=== PATIENT | female | born 1960 | race American Indian/Alaskan Native ===

== ENCOUNTER 2020-07-09 15:27 | Emergency (ER) | payer SELFPAY | END 2020-07-09 17:09 | disposition left against medical advice (07) | LOC: ED 15:27 | DX: Z53.21 Procedure and treatment not carried out due to patient leaving prior to being seen by health care provider (principal) ==

== ENCOUNTER 2020-07-10 10:43 | Emergency (ER) | payer SELFPAY ==
[2020-07-10 11:01] VITALS: BP 125/61
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
--- NOTE | 2020-07-10 14:53 | Cat Scan Report ---
CT HEAD WITHOUT CONTRAST INDICATION / CLINICAL INFORMATION: Right-sided headache, trauma. TECHNIQUE: All CT scans at this location are performed using CT dose reduction for ALARA by means of automated e xposure control. COMPARISON: None available. FINDINGS: HEMORRHAGE: None. EXTRA-AXIAL SPACES: Normal in size and morphology for the patient's age. VENTRICULAR SYSTEM: Normal in size and morphology for the patient's age. CEREBRAL PARENCHYMA: No significant abnormality. No acute territorial infarct. MIDLINE SHIFT OR HERNIATION: None. CEREBELLUM / BRAINSTEM: No significant abnormality. ORBITS: Normal as visualized. SOFT TISSUES of HEAD: No significant abnormality. CALVARIUM: No significant abnormality. PARANASAL SINUSES / MASTOID AIR CELLS: Small air-fluid level right maxillary sinus characteristic for acute sinusitis ADDITIONAL FINDINGS: None. IMPRESSION: 1. No acute intracranial abnormality. 2 acute right maxillary sinusitis Signer Name: Harry Owusu MD Signed: 07/10/2020 2:48 PM Workstation Name: [id number]
== END 2020-07-10 15:21 | disposition home or self-care (01) ==
LOC: ED 10:43
DX: S09.90XA Unspecified injury of head, initial encounter (principal); J01.00 Acute maxillary sinusitis, unspecified; Z90.49 Acquired absence of other specified parts of digestive tract; X58.XXXA Exposure to other specified factors, initial encounter; Y93.89 Activity, other specified; Y92.89 Other specified places as the place of occurrence of the external cause; Y99.8 Other external cause status
CPT/HCPCS: 70450; 99283